=== PATIENT | male | born 1975 | race Caucasian/White ===

== ENCOUNTER 2016-06-10 13:16 | Emergency (ER) | payer OTHER ==
[2016-06-10] MEDS ORDERED: METHOCARBAMOL 500 MG TABLET PO STA (14:27)
[2016-06-10] MEDS ORDERED: METHOCARBAMOL 500 MG TABLET PO ONE (14:32)
== END 2016-06-10 14:56 | disposition home or self-care (01) ==
DX: M54.42 Lumbago with sciatica, left side (principal); G89.29 Other chronic pain; R03.0 Elevated blood-pressure reading, without diagnosis of hypertension
CPT/HCPCS: 81003; 99283; A9270

== ENCOUNTER 2018-10-19 00:44 | Emergency (ER) | payer OTHER ==
[2018-10-19] MEDS ORDERED: SODIUM CHLORIDE 0.9% 1,000 ML IV ONE (01:01)
[2018-10-19] MEDS ORDERED: ONDANSETRON 4 MG/2 ML VIAL IVP STA (01:01)
[2018-10-19] MEDS ORDERED: HYDROmorphone 1 MG/ML CARPUJECT IVP STA ×2 (01:01→02:26)
[2018-10-19] MEDS ORDERED: KETOROLAC 30 MG/ML VIAL IVP STA (01:01)
[2018-10-19 01:15] LABS: BILIRUBIN,URINE NEGATIVE (NEGATIVE); GLUCOSE, URINE (UA) NEGATIVE (NEGATIVE); KETONES,URINE (UA) NEGATIVE (NEGATIVE); LEUKOCYTE ESTERASE, URINE NEGATIVE (NEGATIVE); NITRITE,URINE NEGATIVE (NEGATIVE); OCCULT BLOOD,URINE LARGE (NEGATIVE); PH,URINE 5.5 PH (5.0-7.5); PROTEIN,URINE NEGATIVE (NEGATIVE); UROBILINOGEN,URINE 0.2 (NORMAL) E.U./dL (NORMAL)
[2018-10-19 01:27] LABS: CLARITY,URINE SL. CLOUDY (CLEAR)
[2018-10-19 01:28] LABS: BACTERIA,URINE None Seen /HPF (None Seen); CRYSTALS,URINE 6-10 Calcium Oxalate /LPF; SQUAMOUS EPITHELIAL CELL,UR NONE SEEN (<= Few)
[2018-10-19] MEDS ORDERED: fentaNYL 100 MCG/2 ML VIAL IVP STA (01:31)
--- NOTE | 2018-10-19 01:54 | CT Report ---
Reason: right flank pain with hematuria Procedure Date: 10/19/2018 Accession Number: [id number] / [id number] Procedure: CT - Abdomen/Pelvis WO CPT Code: FULL RESULT: EXAM: CT ABDOMEN AND PELVIS (CT KUB) EXAM DATE: 10/19/2018 01:30 AM. CLINICAL HISTORY: Right-sided flank pain since 11 PM. Blood in urine. History of kidney stones. COMPARISONS: ABD/PEL 09/09/2009 12:22 AM. TECHNIQUE: Routine axial helical CT imaging was performed through the abdomen and pelvis without IV contrast. Reconstructions: Coronal and sagittal. In accordance with CT protocol optimization, one or more of the following dose reduction techniques were utilized for this exam: automated exposure control, adjustment of mA and/or KV based on patient size, or use of iterative reconstructive technique. FINDINGS: Right Kidney/Ureter: There is mild right-sided hydroureteronephrosis noted, secondary to a 3.4 mm right UVJ region stone. There are two nonobstructing stones within the mid and lower pole of the right kidney, measuring 7.2 mm (image 75 series 3). No hydronephrosis or hydroureter. No definite renal mass within the confines of a non-contrast exam. Left Kidney/Ureter: There are two stones within the left kidney, measuring up to 3 mm within the mid and lower portion. No left-sided hydronephrosis is demonstrated. No hydronephrosis or hydroureter. No definite renal mass within the confines of a non-contrast exam. Abdominal Solid Organs: Abdominal parenchymal organs are without significant abnormality within the confines of a noncontrast exam. Bowel: No evidence of bowel obstruction. Appendix: Normal. Lymph Nodes: No definite pathologic lymphadenopathy. Fluid: No significant ascites. Vasculature: Normal caliber aorta. Pelvis: No bladder stones. Visualized pelvic organs are without significant abnormality within the confines of a noncontrast exam. Bones: No definite suspicious bony lesions demonstrated. Lower Chest: No significant lung base consolidation or effusion. IMPRESSION: 1. Mild right-sided hydroureteronephrosis secondary to a 3.4 mm right UVJ stone. 2. There are two intrarenal stones within each kidney, largest within the right lower kidney measuring 7 mm. RADIA
--- NOTE | 2018-10-19 02:00 | ED Physician Documentation ---
PD HPI ABD PAIN - Stated complaint Stated Complaint: ABD PX/BK PX - Chief complaint Chief Complaint: Abd Pain - History obtained from History obtained from: Patient, Family - History of Present Illness Timing - onset: How many hours ago (2) Timing - duration: Hours (2) Timing - details: Still present in ED Quality: Stabbing Location: Other (right flank) Radiation: Other (right groin) Associated symptoms: Vomiting Similar symptoms before: Diagnosis (History of similar pain with kidney stones.) - Additional information Additional information: The patient is a 43-year-old male with history of kidney stones, who presents with sudden onset of right flank pain that started about 2 hours prior to arrival. He reports associated vomiting. He denies fever or dysuria. He also has history of recurrent low back pain with spasms, but states that this pain feels more like a kidney stone. Review of Systems Constitutional: denies: Fever Nose: denies: Congestion Throat: denies: Sore throat Cardiac: denies: Chest pain / pressure Respiratory: denies: Dyspnea, Cough GI: reports: Abdominal Pain, Nausea, Vomiting : denies: Dysuria Skin: denies: Rash Musculoskeletal: reports: Back pain (Right flank.) Neurologic: denies: Headache PD PAST MEDICAL HISTORY - Past Medical History Past Medical History: Yes Cardiovascular: None Respiratory: None Endocrine/Autoimmune: None GI: None : Kidney stones HEENT: None Musculoskeletal: Chronic back pain Derm: None - Past Surgical History Past Surgical History: Yes Ortho: Other HEENT: Other - Present Medications Home Medications: Ambulatory Orders Medication Instructions Recorded Confirmed Fexofenadine/Pseudoephedrine 1 tab PO DAILY 10/19/18 10/19/18 [[place]ana-D 24 Hour Tablet] Oxycodone HCl/Acetaminophen 1 - 2 each PO Q6H PRN #14 tablet 10/19/18 [Percocet 5-325 mg Tablet] Tamsulosin [Flomax] 0.4 mg PO DAILY #7 capsule 10/19/18 - Allergies Allergies/Adverse Reactions: Allergies Allergy/AdvReac Type Severity Reaction Status Date / Time No Known Drug Allergies Allergy Verified 10/19/18 01:13 - Social History Does the pt smoke?: No Smoking Status: Never smoker Does the pt drink ETOH?: Yes Does the pt have substance abuse?: No - Immunizations Immunizations are current?: Yes - POLST Patient has POLST: No PD ED PE NORMAL - Vitals Vital signs reviewed: Yes (Initially hypertensive.) - General General: Alert and oriented X 3, Well developed/nourished, Other (Appears uncomfortable.) - HEENT HEENT: Atraumatic - Cardiac Cardiac: RRR - Respiratory Respiratory: No respiratory distress, Clear bilaterally - Abdomen Abdomen: Soft, Non tender - Back Back: Other (Right CVA tenderness to percussion.) - Derm Derm: No rash - Extremities Extremities: No edema, No calf tenderness / cord - Neuro Neuro: Alert and oriented X 3, No motor deficit, Normal speech Results - Vitals Vitals: Oxygen O2 Source Room air - Labs Labs: Laboratory Tests 10/19/18 00:55 Urine Color YELLOW Urine Clarity SL. CLOUDY Urine pH 5.5 Ur Specific [place] >=1.030 H Urine Protein NEGATIVE Urine Glucose (UA) NEGATIVE Urine Ketones NEGATIVE Urine Occult Blood LARGE H Urine Nitrite NEGATIVE Urine Bilirubin NEGATIVE Urine Urobilinogen 0.2 (NORMAL) Ur Leukocyte Esterase NEGATIVE Urine RBC 11-25 H Urine WBC 0-3 Ur Squamous Epith Cells NONE SEEN Urine Crystals 6-10 Calcium Oxalate Urine Bacteria None Seen Ur Microscopic Review INDICATED Urine Culture Comments NOT INDICATED - Rads (name of study) CT abd/pelvis Radiology: Prelim report reviewed, EMP read contemporaneously, See rad report (1) Mild right-sided hydroureteronephrosis secondary to a 3.4 mm right UVJ stone. 2) There are 2 intrarenal stones within each kidney, largest within the right lower kidney measuring 7 mm) PD MEDICAL DECISION MAKING - ED course Complexity details: reviewed old records, reviewed results, re-evaluated patient, considered differential, d/w patient, d/w family ED course: The patient's presentation is consistent with right renal colic, with a 3.4 mm distal ureteral stone seen on CT scan. His clinical presentation does not suggest pyelonephritis or a vascular catastrophe. Treatment in the emergency department included administration of normal saline 1 L IV, ketorolac 30 mg IV, Zofran 4 mg IV, fentanyl 50 g IV, and Dilaudid 1 mg IV 2. The patient's pain resolved with the above treatment. He is being discharged with prescription for Percocet, and a 4 tablet prepack was dispensed. I discussed with him and his the diagnosis, outpatient follow-up with urology, as well as potentially worrisome signs or symptoms that should prompt reevaluation in the emergency department. Departure - Departure Disposition: 01 Home, Self Care Clinical Impression: Renal colic, Ureteral stone Condition: Stable Instructions: ED Stone Renal W Colic Follow-Up: CINDY MARIE MD [Primary Care Provider] - Prescriptions: Oxycodone HCl/Acetaminophen [Percocet 5-325 mg Tablet] 1 - 2 each PO Q6H PRN #14 tablet PRN Reason: pain Tamsulosin [Flomax] 0.4 mg PO DAILY #7 capsule Comments: Drink plenty of fluids. Take Flomax daily as prescribed. You can use ibuprofen, up to 800 mg 3 times daily for its anti-inflammatory effect. You can use Percocet as prescribed if needed for pain. Follow-up with your primary physician or your urologist within 1 week. Call to schedule an appointment. Return to the emergency department if you develop increasing pain, fever, persistent vomiting, or otherwise worsening symptoms. Forms: Activity restrictions Discharge Date/Time: 10/19/18 02:49
[2018-10-19] MEDS ORDERED: oxyCODONE/ACET 5/325 Prepack 4 PO STA (02:21)
[2018-10-19 02:33] VITALS: BP 137/88
== END 2018-10-19 02:49 | disposition home or self-care (01) ==
LOC: ED 00:44
DX: N13.2 Hydronephrosis with renal and ureteral calculous obstruction (principal)
CPT/HCPCS: 74176; 81001; 96361; 96374; 96375; 96376; 99283; 99284; J1170; 81003; 87086

== ENCOUNTER 2019-02-15 23:35 | Emergency (ER) | payer OTHER ==
[2019-02-16 00:09] LABS: BASOPHILS # (AUTO) 0.1 10^3/uL (0.0-0.1); BASOPHILS % (AUTO) 0.8 %; EOSINOPHILS # (AUTO) 0.2 10^3/uL (0.0-0.7); EOSINOPHILS % (AUTO) 2.1 %; HGB - HEMOGLOBIN 15.1 g/dL (14.0-18.0); LYMPHOCYTES # (AUTO) 2.1 10^3/uL (1.5-3.5); LYMPHOCYTES % (AUTO) 28.9 %; MEAN CORPUSCULAR HEMOGLOBIN 29.4 pg (27.0-31.0); MEAN CORPUSCULAR HGB CONC 32.8 g/dL (32.0-36.0); MEAN CORPUSCULAR VOLUME 89.5 fL (80.0-94.0); MONOCYTES # (AUTO) 0.7 10^3/uL (0.0-1.0); MONOCYTES % (AUTO) 9.7 %; NEUTROPHILS # (AUTO) 4.1 10^3/uL (1.5-6.6); NEUTROPHILS % (AUTO) 57.8 %; PLT - PLATELET COUNT 302 10^3/uL (130-450); RED BLOOD COUNT 5.14 10^6/uL (4.70-6.10); RED CELL DISTRIBUTION WIDTH 11.8 % (12.0-15.0); WHITE BLOOD COUNT 7.1 x10^3/uL (4.8-10.8)
[2019-02-16 00:14] LABS: BILIRUBIN,URINE NEGATIVE (NEGATIVE); GLUCOSE, URINE (UA) NEGATIVE (NEGATIVE); KETONES,URINE (UA) NEGATIVE (NEGATIVE); LEUKOCYTE ESTERASE, URINE NEGATIVE (NEGATIVE); NITRITE,URINE NEGATIVE (NEGATIVE); OCCULT BLOOD,URINE LARGE (NEGATIVE); PROTEIN,URINE NEGATIVE (NEGATIVE); UROBILINOGEN,URINE 0.2 (NORMAL) E.U./dL (NORMAL)
[2019-02-16 00:15] LABS: CLARITY,URINE CLEAR (CLEAR)
[2019-02-16 00:20] LABS: BACTERIA,URINE Rare /HPF (None Seen); SQUAMOUS EPITHELIAL CELL,UR NONE SEEN (<= Few)
[2019-02-16 00:21] LABS: ALBUMIN 4.7 g/dL (3.2-5.5); ALBUMIN/GLOBULIN RATIO 1.7 (1.0-2.2); BILIRUBIN,TOTAL 0.5 mg/dL (0.2-1.0); CREATININE 0.9 mg/dL (0.6-1.2); TOTAL PROTEIN 7.5 g/dL (6.7-8.2)
--- NOTE | 2019-02-16 00:25 | ED Physician Documentation ---
PD HPI ABD PAIN - Stated complaint Stated Complaint: ABD PX, BACK LOWER SIDE PX - Chief complaint Chief Complaint: Abd Pain - History obtained from History obtained from: Patient - History of Present Illness Timing - onset: Enter time (20:00), Today Timing - details: Abrupt onset, Waxing and waning Pain level now: 6 Quality: Pain Location: RLQ Radiation: Right flank Improved by: Other (no ameliorating factors) Worsened by: Other (no exacerbating factors) Associated symptoms: Nausea, Vomiting. No: Fever, Diarrhea, Constipation Similar symptoms before: Diagnosis (similar to previous renal colic (although that was left side)) Recently seen: Not recently seen Review of Systems Constitutional: reports: Sweats. denies: Fever, Chills Cardiac: reports: Reviewed and negative Respiratory: reports: Reviewed and negative GI: reports: Abdominal Pain (flank pain), Nausea, Vomiting : denies: Dysuria, Frequency, Hematuria PD PAST MEDICAL HISTORY - Past Medical History Past Medical History: Yes Cardiovascular: None Respiratory: None Endocrine/Autoimmune: None GI: None : Kidney stones HEENT: None Musculoskeletal: Chronic back pain Derm: None - Past Surgical History Past Surgical History: Yes Ortho: Other HEENT: Other - Present Medications Home Medications: Ambulatory Orders Medication Instructions Recorded Confirmed Ondansetron Odt [Zofran] 4 mg TL Q6H PRN #10 tablet 02/16/19 Oxycodone HCl/Acetaminophen 1 - 2 each PO Q6H PRN #14 tablet 02/16/19 [Percocet 5-325 mg Tablet] Tamsulosin [Flomax] 0.4 mg PO DAILY #14 capsule 02/16/19 - Allergies Allergies/Adverse Reactions: Allergies Allergy/AdvReac Type Severity Reaction Status Date / Time No Known Drug Allergies Allergy Verified 02/15/19 23:44 - Social History Does the pt smoke?: No Smoking Status: Never smoker Does the pt drink ETOH?: Yes Does the pt have substance abuse?: No - Immunizations Immunizations are current?: Yes - POLST Patient has POLST: No PD ED PE NORMAL - Vitals Vital signs reviewed: Yes - General General: Alert and oriented X 3, No acute distress, Well developed/nourished - Cardiac Cardiac: RRR, No murmur - Respiratory Respiratory: No respiratory distress, Clear bilaterally - Abdomen Abdomen: Soft, Non tender - Back Back: No CVA TTP Results - Vitals Vitals: Vital Signs - 24 hr 02/15/19 02/16/19 02/16/19 23:40 02:04 02:56 Temperature 36.3 C L Heart Rate 71 76 69 Respiratory 16 16 14 Rate Blood Pressure 152/98 H 149/106 H 138/103 H O2 Saturation 98 99 96 Oxygen O2 Source Room air - Labs Labs: Laboratory Tests 02/15/19 02/15/19 02/16/19 23:55 23:55 00:00 WBC 7.1 RBC 5.14 Hgb 15.1 Hct 46.0 MCV 89.5 MCH 29.4 MCHC 32.8 RDW 11.8 L Plt Count 302 MPV 10.0 Neut # (Auto) 4.1 Lymph # (Auto) 2.1 [place] # (Auto) 0.7 Eos # (Auto) 0.2 Baso # (Auto) 0.1 Absolute Nucleated RBC 0.00 Nucleated RBC % 0.0 Sodium 139 Potassium 3.7 Chloride 104 Carbon Dioxide 27 Anion Gap 8.0 BUN 22 H Creatinine 0.9 Estimated GFR (MDRD) 93 Glucose 103 H Calcium 10.0 Total Bilirubin 0.5 AST 25 ALT 41 Alkaline Phosphatase 48 Total Protein 7.5 Albumin 4.7 Globulin 2.8 Albumin/Globulin Ratio 1.7 Lipase 37 Urine Color YELLOW Urine Clarity CLEAR Urine pH 6.0 Ur Specific [place] 1.020 Urine Protein NEGATIVE Urine Glucose (UA) NEGATIVE Urine Ketones NEGATIVE Urine Occult Blood LARGE H Urine Nitrite NEGATIVE Urine Bilirubin NEGATIVE Urine Urobilinogen 0.2 (NORMAL) Ur Leukocyte Esterase NEGATIVE Urine RBC 11-25 H Urine WBC 0-3 Ur Squamous Epith Cells NONE SEEN Urine Bacteria Rare Ur Microscopic Review INDICATED Urine Culture Comments NOT INDICATED PD MEDICAL DECISION MAKING - ED course Complexity details: reviewed old records, reviewed results, re-evaluated patient, considered differential, d/w patient ED course: flank pain similar to previous renal colic. Previous CT (October 2018) demonstrated left ureteral stone but multiple bilateral renal stones as well. Hematuria on UA. Strongly c/w renal colic and thus no emergent imaging indicated at this time. Symptoms were controlled with Dilaudid, toradol, zofran. Given flomax, as well. Departure - Departure Disposition: 01 Home, Self Care Clinical Impression: Renal colic Condition: Good Instructions: ED Stone Renal W Colic Follow-Up: CINDY MARIE MD [Primary Care Provider] - Prescriptions: Ondansetron Odt [Zofran] 4 mg TL Q6H PRN #10 tablet PRN Reason: Nausea / Vomiting Oxycodone HCl/Acetaminophen [Percocet 5-325 mg Tablet] 1 - 2 each PO Q6H PRN #14 tablet PRN Reason: pain Tamsulosin [Flomax] 0.4 mg PO DAILY #14 capsule Discharge Date/Time: 02/16/19 03:05
[2019-02-16] MEDS ORDERED: KETOROLAC 30 MG/ML VIAL IVP STA (00:44)
[2019-02-16] MEDS ORDERED: HYDROmorphone 1 MG/ML CARPUJECT IVP STA ×2 (00:44→01:56)
[2019-02-16] MEDS ORDERED: ONDANSETRON 4 MG/2 ML VIAL IVP STA (00:44)
[2019-02-16] MEDS ORDERED: TAMSULOSIN 0.4 MG CAPSULE PO STA (00:45)
[2019-02-16] MEDS ORDERED: oxyCODONE/ACET 5/325 Prepack 4 PO STA (02:51)
[2019-02-16 02:58] VITALS: BP 138/103
== END 2019-02-16 03:05 | disposition home or self-care (01) ==
LOC: ED 23:35
DX: N23 Unspecified renal colic (principal); R31.9 Hematuria, unspecified
CPT/HCPCS: 36415; 80053; 81001; 83690; 85025; 96374; 96375; 96376; 99283; 99284; A9270; J1170; 81003; 87086

== ENCOUNTER 2020-06-27 00:12 | Outpatient (CLI) | payer OTHER | END 2020-06-27 23:59 | disposition critical access hospital (66) | LOC: EMS 00:12 | PROVIDERS: ATTEND Emergency Medicine | DX: R10.31 Right lower quadrant pain (principal); R11.2 Nausea with vomiting, unspecified | CPT/HCPCS: A0425; A0427 ==

== ENCOUNTER 2020-06-27 00:29 | Emergency (ER) | payer OTHER ==
[2020-06-27] MEDS ORDERED: SODIUM CHLORIDE 0.9% 1,000 ML IV STA (00:51)
[2020-06-27 01:02] LABS: BASOPHILS # (AUTO) 0.1 10^3/uL (0.0-0.1); BASOPHILS % (AUTO) 0.9 %; EOSINOPHILS # (AUTO) 0.3 10^3/uL (0.0-0.7); EOSINOPHILS % (AUTO) 3.7 %; HCT - HEMATOCRIT 43.1 % (42.0-52.0); HGB - HEMOGLOBIN 14.5 g/dL (14.0-18.0); LYMPHOCYTES # (AUTO) 2.8 10^3/uL (1.5-3.5); LYMPHOCYTES % (AUTO) 41.9 %; MEAN CORPUSCULAR HEMOGLOBIN 30.3 pg (27.0-31.0); MEAN CORPUSCULAR HGB CONC 33.6 g/dL (32.0-36.0); MEAN CORPUSCULAR VOLUME 90.2 fL (80.0-94.0); MEAN PLATELET VOLUME 9.8 fL (7.4-11.4); MONOCYTES # (AUTO) 0.7 10^3/uL (0.0-1.0); MONOCYTES % (AUTO) 10.6 %; NEUTROPHILS # (AUTO) 2.8 10^3/uL (1.5-6.6); PLT - PLATELET COUNT 325 10^3/uL (130-450); RED BLOOD COUNT 4.78 10^6/uL (4.70-6.10); WHITE BLOOD COUNT 6.7 x10^3/uL (4.8-10.8)
[2020-06-27 01:11] LABS: ALBUMIN 4.7 g/dL (3.2-5.5); ALBUMIN/GLOBULIN RATIO 1.9 (1.0-2.2); BILIRUBIN,TOTAL 0.7 mg/dL (0.2-1.0); CALCIUM 9.5 mg/dL (8.5-10.3); POTASSIUM 3.5 mmol/L (3.5-5.0); TOTAL PROTEIN 7.2 g/dL (6.7-8.2)
--- NOTE | 2020-06-27 01:40 | ED Physician Documentation ---
PD HPI ABD PAIN - Stated complaint Stated Complaint: RT FLANK PX - Chief complaint Chief Complaint: Abd Pain - History obtained from History obtained from: Patient - Additional information Additional information: 44-year-old man with past medical history of kidney stones that passed spontaneously, no other medical problems presents with right flank pain sudden in onset this evening radiating to the lower abdomen associated with dysuria. Pain is constant, sharp, currently a 2 out of 10 after getting fentanyl, associated with one episode of nausea and vomiting with streak of blood. Denies fever, diarrhea, chest pain or shortness of breath. Review of Systems Ten Systems: 10 systems reviewed and negative Constitutional: denies: Fever, Chills GI: reports: Abdominal Pain, Nausea, Vomiting : reports: Dysuria Musculoskeletal: reports: Back pain PD PAST MEDICAL HISTORY - Past Medical History Cardiovascular: None Respiratory: None Endocrine/Autoimmune: None GI: None : Kidney stones HEENT: None Musculoskeletal: Chronic back pain Derm: None - Past Surgical History Past Surgical History: Yes Ortho: Spine surgery, Other HEENT: Other - Present Medications Home Medications: Ambulatory Orders Medication Instructions Recorded Confirmed oxyCODONE/ACET 5/325 [Percocet 5 1 each PO Q4-6H PRN #9 tablet 06/27/20 mg/325 mg] - Allergies Allergies/Adverse Reactions: Allergies Allergy/AdvReac Type Severity Reaction Status Date / Time No Known Drug Allergies Allergy Verified 06/27/20 00:38 - Social History Does the pt smoke?: No Smoking Status: Never smoker Does the pt drink ETOH?: Yes Does the pt have substance abuse?: No - Immunizations Immunizations are current?: Yes - POLST Patient has POLST: No PD ED PE NORMAL - Vitals Vital signs reviewed: Yes - General General: Alert and oriented X 3, No acute distress, Well developed/nourished - HEENT HEENT: Atraumatic, PERRL, EOMI - Neck Neck: Supple, no meningeal sign - Cardiac Cardiac: RRR - Respiratory Respiratory: No respiratory distress, Clear bilaterally - Abdomen Abdomen: Non tender, Non distended, Other (Discomfort to suprapubic palpation) - Back Back: No CVA TTP - Derm Derm: Normal color - Extremities Extremities: No deformity - Neuro Neuro: Alert and oriented X 3 - Psych Psych: Normal mood, Normal affect Results - Vitals Vitals: Vital Signs - 24 hr 06/27/20 00:32 Temperature 37.2 C Heart Rate 80 Respiratory 18 Rate Blood Pressure 154/96 H O2 Saturation 95 Oxygen O2 Source Room air - Labs Labs: Laboratory Tests 06/27/20 06/27/20 06/27/20 00:44 00:44 02:00 WBC 6.7 RBC 4.78 Hgb 14.5 Hct 43.1 MCV 90.2 MCH 30.3 MCHC 33.6 RDW 12.0 Plt Count 325 MPV 9.8 Neut # (Auto) 2.8 Lymph # (Auto) 2.8 [place] # (Auto) 0.7 Eos # (Auto) 0.3 Baso # (Auto) 0.1 Absolute Nucleated RBC 0.00 Nucleated RBC % 0.0 Sodium 137 Potassium 3.5 Chloride 100 L Carbon Dioxide 23 Anion Gap 14.0 H BUN 16 Creatinine 1.0 Estimated GFR (MDRD) 82 L Glucose 119 H Calcium 9.5 Total Bilirubin 0.7 AST 38 ALT 50 Alkaline Phosphatase 43 Total Protein 7.2 Albumin 4.7 Globulin 2.5 Albumin/Globulin Ratio 1.9 Lipase 30 Urine Color YELLOW Urine Clarity CLEAR Urine pH 6.5 Ur Specific [place] 1.025 Urine Protein NEGATIVE Urine Glucose (UA) NEGATIVE Urine Ketones NEGATIVE Urine Occult Blood LARGE H Urine Nitrite NEGATIVE Urine Bilirubin NEGATIVE Urine Urobilinogen 0.2 (NORMAL) Ur Leukocyte Esterase NEGATIVE Urine RBC 11-25 H Urine WBC 0-3 Ur Squamous Epith Cells NONE SEEN Urine Bacteria None Seen Ur Microscopic Review INDICATED Urine Culture Comments NOT INDICATED Procedures - Bedside sono Bedside sono by EMP: Qsaap-rl-lnet ultrasound of bilateral kidneys with no signs of hydronephrosis. PD MEDICAL DECISION MAKING - ED course ED course: 44-year-old man with history of prior kidney stones presents with pain he states is identical to his prior stones. [id number] bedside ultrasound shows no hydronephrosis. Urinalysis negative. Symptoms well controlled. Patient will follow up [facility] as an outpatient. Strict return precautions given. Departure - Departure Disposition: 01 Home, Self Care Clinical Impression: Flank pain, Abdominal pain, Nausea and vomiting Condition: Good Instructions: Kidney Stones Follow-Up: Mirian Cronin MD [Physician No Access] - Prescriptions: oxyCODONE/ACET 5/325 [Percocet 5 mg/325 mg] 1 each PO Q4-6H PRN #9 tablet PRN Reason: Pain Comments: You were seen in the emergency department for flank pain going to your abdomen. It is likely that you have kidney stones again today. Your ultrasound of your kidneys was normal. Your kidney function and urine was normal. Please return to the emergency department if you have any new or worsening symptoms or other concerns. Do not drive with narcotic pain medication. Follow-up with urology.
[2020-06-27 02:09] LABS: BILIRUBIN,URINE NEGATIVE (NEGATIVE); GLUCOSE, URINE (UA) NEGATIVE (NEGATIVE); KETONES,URINE (UA) NEGATIVE (NEGATIVE); LEUKOCYTE ESTERASE, URINE NEGATIVE (NEGATIVE); NITRITE,URINE NEGATIVE (NEGATIVE); OCCULT BLOOD,URINE LARGE (NEGATIVE); PH,URINE 6.5 PH (5.0-7.5); PROTEIN,URINE NEGATIVE (NEGATIVE); UROBILINOGEN,URINE 0.2 (NORMAL) E.U./dL (NORMAL)
[2020-06-27 02:16] LABS: BACTERIA,URINE None Seen /HPF (None Seen); CLARITY,URINE CLEAR (CLEAR); SQUAMOUS EPITHELIAL CELL,UR NONE SEEN (<= Few); WBC,URINE 0-3 /HPF (0-3)
[2020-06-27] MEDS ORDERED: oxyCODONE/ACET 5/325 Prepack 4 PO STA (02:20)
[2020-06-27 02:51] VITALS: BP 147/100
== END 2020-06-27 02:40 | disposition home or self-care (01) ==
LOC: EDUNIT# → ED 00:29
DX: R10.30 Lower abdominal pain, unspecified (principal); R11.2 Nausea with vomiting, unspecified; R30.0 Dysuria
CPT/HCPCS: 36415; 80053; 81001; 81003; 83690; 85025; 87086; 99283; 99284

== ENCOUNTER 2022-09-03 16:40 | Outpatient (CLI) | payer OTHER | END 2022-09-03 16:41 | disposition critical access hospital (66) | LOC: EMS 16:40 | DX: M54.50 Low back pain, unspecified (principal); X50.0XXA Overexertion from strenuous movement or load, initial encounter; Y92.009 Unspecified place in unspecified non-institutional (private) residence as the place of occurrence of the external cause | CPT/HCPCS: A0425; A0427 ==

== ENCOUNTER 2022-09-03 17:03 | Emergency (ER) | payer OTHER ==
[2022-09-03] MEDS ORDERED: LORazepam 2 MG/ML VIAL IVP STA (17:14)
[2022-09-03] MEDS ORDERED: HYDROmorphone 1 MG/ML CARPUJECT IVP STA ×2 (17:14→18:05)
[2022-09-03] MEDS ORDERED: KETOROLAC 15 MG/ML VIAL IVP STA (17:14)
--- NOTE | 2022-09-03 17:15 | ED Physician Documentation ---
PD HPI BACK PAIN - Stated complaint Stated Complaint: BACK PX - Chief complaint Chief Complaint: Back Pain - History obtained from History obtained from: Patient - Additional information Additional information: 47-year-old gentleman has history of back problems, remotely had a laminectomy, since then really has not had much problem with his back. Today he was lifting a box into his truck and "tweaked" his back with severe low back pain that is nonradiating. Much worse with motion. Denies weakness, numbness, tingling, saddle anesthesia, or fevers. PD PAST MEDICAL HISTORY - Past Medical History Cardiovascular: None Respiratory: None Endocrine/Autoimmune: None GI: None : Kidney stones HEENT: None Musculoskeletal: Chronic back pain Derm: None - Past Surgical History Past Surgical History: Yes Ortho: Spine surgery, Other HEENT: Other - Present Medications Home Medications: Ambulatory Orders Medication Instructions Recorded Confirmed Cyclobenzaprine [Flexeril] 10 mg PO TID PRN #20 tablet 09/03/22 Ibuprofen 400 mg PO Q6HR PRN 09/03/22 09/03/22 Ibuprofen [Motrin] 800 mg PO Q8H PRN #30 tablet 09/03/22 Oxycodone HCl/Acetaminophen 1 - 2 each PO Q6H PRN #14 tablet 09/03/22 [Percocet 5-325 mg Tablet] - Allergies Allergies/Adverse Reactions: Allergies Allergy/AdvReac Type Severity Reaction Status Date / Time No Known Drug Allergies Allergy Verified 09/03/22 17:09 - Social History Does the pt smoke?: No Smoking Status: Never smoker Does the pt drink ETOH?: Yes Does the pt have substance abuse?: No - Immunizations Immunizations are current?: Yes - POLST Patient has POLST: No PD ED PE NORMAL - Vitals Vital signs reviewed: Yes - General General: Alert and oriented X 3, Other (Comfortable at rest but winces with any motion) - Abdomen Abdomen: Normal bowel sounds, Soft, Non tender - Back Back: Other (Mild tenderness around L3-L4) - Extremities Extremities: Other (The patient has equal and normal Achilles and patellar refle xes bilaterally. Normal sensation in all areas of the legs. Patient denies saddle anesthesia. Normal strength in flexion-extension at the ankles, knees, and flexion of the hips.) Results - Vitals Vitals: Vital Signs - 24 hr 09/03/22 09/03/22 09/03/22 17:10 17:24 18:00 Temperature 36.8 C Heart Rate 75 78 82 Respiratory 20 18 16 Rate Blood Pressure 154/103 H 144/92 H 121/88 H O2 Saturation 99 98 99 09/03/22 09/03/22 09/03/22 18:39 18:40 18:46 Temperature Heart Rate 57 L Respiratory 16 17 17 Rate Blood Pressure O2 Saturation 97 Oxygen O2 Source Room air PD Medical Decision Making - ED course ED course: This patient has seemingly uncomplicated musculoskeletal back pain. The patient has no "red flags." Specifically denies IV drug use, fevers, incontinence, saddle anesthesia. Spinal epidural abscess was considered, given that the patient has no fever, is not diabetic, has no spinal tenderness, does not use IV drugs, and has no bilateral neurologic symptoms, the diagnosis of spinal epidural abscess is considered exceedingly unlikely. He had an IV in place and had been administered a small dose of fentanyl prior to arrival. This was followed by 1 mg of IV Dilaudid and 15 mg of IV Toradol and 1 mg of IV Ativan. After that he was feeling much better and we got him up but he still could not quite ambulate without a lot of pain. This was followed by another milligram of Ativan IV, a Lidoderm patch, and subsequently I personally did a trigger point injection with 9 mL of 0.5% Marcaine and 10 mg of dexamethasone. Departure - Departure Disposition: 01 Home, Self Care Clinical Impression: Strain of back muscle, Back spasm Condition: Good Record reviewed to determine appropriate education?: Yes Instructions: ED Low Back Pain Injury Prescriptions: Cyclobenzaprine [Flexeril] 10 mg PO TID PRN #20 tablet PRN Reason: Spasms Ibuprofen [Motrin] 800 mg PO Q8H PRN #30 tablet PRN Reason: PAIN &/OR FEVER Oxycodone HCl/Acetaminophen [Percocet 5-325 mg Tablet] 1 - 2 each PO Q6H PRN #14 tablet PRN Reason: pain Comments: I sent your prescriptions electronically to [facility] in [place]. Call your doctor to arrange a follow-up appointment, make the next available appointment. In the interim, return anytime if worse or if new symptoms develop. I am prescribing a short course of narcotic pain medication for you. These are potentially dangerous and addictive medications that should be used carefully. These medications may constipate you. Take an edqi-cju-[id number] stool softener (docusate) twice daily with plenty of water while taking these medications. If you go 24 hours without a bowel movement, take dymp-mry-bhcrskk miralax, per package instructions. Do not drink or drive while taking these medications. If you received narcotic or sedating medications while in the emergency department, do not drive for 24 hours. Store this medication in a safe, secure place and out of reach of children. It is a violation of federal law to give or sell this medication to another person or to use in a manner other than prescribed. The ED will not refill narcotic prescriptions, including prescriptions lost or stolen. To dispose of unwanted medications: 1. [facility] at [address] in [place] has a medication drop box. They accept prescription medications (in pill form) Friday through Friday 9:00 a.m. to 5:00 p.m. 2. The [facility] [place] [employer] accepts prescription medications (in pill form only) for disposal year round. Call for more information. 3. Contact the [facility] for the next [facility] sponsored prescription drug collection event. , [phone], or [phone]; Note that many narcotic pain relievers also contain Tylenol/acetaminophen. Please ensure that your total dose of acetaminophen from all sources does not exceed 3 g (3000 mg) per day. Forms: Activity restrictions
[2022-09-03 18:03] VITALS: BP 121/88
[2022-09-03] MEDS ORDERED: LIDOCAINE PATCH 5% TOP STA (18:05)
[2022-09-03] MEDS ORDERED: DEXAMETHASONE 10 MG/ML VIAL IM STA (18:42)
[2022-09-03] MEDS ORDERED: BUPIVACAINE 0.5% PF 10 ML VIAL IM ONE (18:42)
[2022-09-03] MEDS ORDERED: HYDROmorphone 2 MG/ML VIAL IVP STA (19:03)
== END 2022-09-03 19:33 | disposition home or self-care (01) ==
LOC: EDUNIT# → ED 17:03
DX: M62.830 Muscle spasm of back (principal)
CPT/HCPCS: 96372; 96374; 96376; 99283; 99285; A9270; J1170; J2060

== ENCOUNTER 2022-12-03 13:16 | Emergency (ER) | payer OTHER ==
[2022-12-03 13:33] VITALS: BP 160/90; O2SAT 98
--- NOTE | 2022-12-03 14:18 | ED Physician Documentation ---
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 He had a laminectomy about 2 years ago. He has occasional flares of back pain. He was bending over about a week ago and felt a pull in the left low back and has had pain ever since which is particularly bad with certain motions. He denies weakness, numbness, tingling, saddle anesthesia, incontinence, fevers. He tried ibuprofen without relief. PD PAST MEDICAL HISTORY - Past Medical History Cardiovascular: None Respiratory: None Neuro: None Endocrine/Autoimmune: None GI: None : Kidney stones HEENT: None Psych: None Musculoskeletal: Chronic back pain Derm: None - Past Surgical History Past Surgical History: Yes Ortho: Spine surgery, Other HEENT: Other - Present Medications Home Medications: Ambulatory Orders Medication Instructions Recorded Confirmed Cyclobenzaprine [Flexeril] 10 mg PO TID PRN #20 tablet 09/03/22 Ibuprofen 400 mg PO Q6HR PRN 09/03/22 09/03/22 Ibuprofen [Motrin] 800 mg PO Q8H PRN #30 tablet 09/03/22 Oxycodone HCl/Acetaminophen 1 - 2 each PO Q6H PRN #14 tablet 09/03/22 [Percocet 5-325 mg Tablet] Cyclobenzaprine [Flexeril] 10 mg PO TID PRN #20 tablet 12/03/22 Oxycodone HCl/Acetaminophen 1 - 2 each PO Q6H PRN #14 tablet 12/03/22 [Percocet 5-325 mg Tablet] - Allergies Allergies/Adverse Reactions: Allergies Allergy/AdvReac Type Severity Reaction Status Date / Time No Known Drug Allergies Allergy Verified 12/03/22 13:21 - Social History Does the pt smoke?: No Smoking Status: Never smoker Does the pt drink ETOH?: Yes Does the pt have substance abuse?: No - Immunizations Immunizations are current?: Yes - POLST Patient has POLST: No PD ED PE NORMAL - Vitals Vital signs reviewed: Yes - General General: Alert and oriented X 3, No acute distress - Abdomen Abdomen: Normal bowel sounds, Soft, Non tender - Back Back: No spinal TTP, Other (Mild tenderness of the left paralumbar muscles, he winces with motion but is comfortable at rest. More comfortable standing than sitting.) - Extremities Extremities: Other (The patient has equal and normal Achilles and patellar reflexes bilaterally. Normal sensation in all areas of the legs. Patient denies saddle anesthesia. Normal strength in flexion-extension at the ankles, knees, and flexion of the hips.) - Neuro Neuro: Alert and oriented X 3, Normal speech Results - Vitals Vitals: Vital Signs - 24 hr 12/03/22 13:21 Temperature 36.5 C Heart Rate 84 Respiratory 16 Rate Blood Pressure 160/90 H O2 Saturation 98 Oxygen O2 Source Room air PD Medical Decision Making - ED course ED course: This patient has seemingly uncomplicated musculoskeletal back pain. The patient has no "red flags." Specifically denies IV drug use, fevers, incontinence, saddle anesthesia. Spinal epidural abscess was considered, given that the patient has no fever, is not diabetic, has no spinal tenderness, does not use IV drugs, and has no bilateral neurologic symptoms, the diagnosis of spinal epidural abscess is considered exceedingly unlikely. Departure - Departure Disposition: 01 Home, Self Care Clinical Impression: Back spasm Condition: Good Record reviewed to determine appropriate education?: Yes Instructions: ED Low Back Pain Injury Prescriptions: Cyclobenzaprine [Flexeril] 10 mg PO TID PRN #20 tablet PRN Reason: Spasms Oxycodone HCl/Acetaminophen [Percocet 5-325 mg Tablet] 1 - 2 each PO Q6H PRN #14 tablet PRN Reason: pain Comments: I sent your prescriptions electronically to [facility] in [place]. Call your doctor to arrange a follow-up appointment, make the next available appointment. In the interim, return anytime if worse or if new symptoms develop. 's I am prescribing a short course of narcotic pain medication for you. These are potentially dangerous and addictive medications that should be used carefully. These medications may constipate you. Take an kait-zyx-jujoawd stool softener (docusate) twice daily with plenty of water while taking these medications. If you go 24 hours without a bowel movement, take [id number] miralax, per package instructions. Do not drink or drive while taking these medications. If you received narcotic or sedating medications while in the emergency department, do not drive for 24 hours. Store this medication in a safe, secure place and out of reach of children. It is a violation of federal law to give or sell this medication to another person or to use in a manner other than prescribed. The ED will not refill narcotic prescriptions, including prescriptions lost or stolen. To dispose of unwanted medications: 1. [facility] provides a [facility] box for medication in pill form only (no liquids) 8:00 am to 4:30 p.m. Friday-Friday in the lobby of the [facility] [place], [address] [place] [address]. Empty pills into ziplock bag before disposal. Call [phone] for information. 2.[employer] is a free service available to all [facility] residents. Go to [email or web address] Note that many narcotic pain relievers also contain Tylenol/acetaminophen. Please ensure that your total dose of acetaminophen from all sources does not exceed 3 g (3000 mg) per day. Forms: Activity restrictions
== END 2022-12-03 14:25 | disposition home or self-care (01) ==
LOC: ED 13:16
DX: M62.830 Muscle spasm of back (principal)
CPT/HCPCS: 99282; 99283

== ENCOUNTER 2023-03-20 16:31 | Emergency (ER) | payer OTHER ==
[2023-03-20] MEDS ORDERED: KETOROLAC 60 MG/2 ML VIAL IM STA (16:47)
[2023-03-20] MEDS ORDERED: HYDROmorphone 2 MG/ML VIAL IM STA (16:48)
--- NOTE | 2023-03-20 16:48 | ED Physician Documentation ---
PD HPI BACK PAIN - Stated complaint Stated Complaint: LOWER BACK PX - Chief complaint Chief Complaint: Back Pain - History obtained from History obtained from: Patient - Additional information Additional information: 47-year-old gentleman with chronic recurrent back pain. Usually has a few flares a year. Had a laminectomy about 3 years ago. Today he was bending over reaching for his pants and developed left low back pain similar to prior recurrent severe back pain. There is no associated radiation of the pain, no weakness, numbness, tingling, saddle anesthesia, fevers. It is worse if he chavo ds or twists or changes position. PD PAST MEDICAL HISTORY - Past Medical History Past Medical History: Yes Cardiovascular: None Respiratory: None Neuro: None Endocrine/Autoimmune: None GI: None : Kidney stones HEENT: None Psych: None Musculoskeletal: Chronic back pain Derm: None - Past Surgical History Past Surgical History: Yes Ortho: Spine surgery, Other HEENT: Other - Present Medications Home Medications: Ambulatory Orders Medication Instructions Recorded Confirmed Cyclobenzaprine [Flexeril] 10 mg PO TID PRN #20 tablet 09/03/22 Ibuprofen 400 mg PO Q6HR PRN 09/03/22 09/03/22 Ibuprofen [Motrin] 800 mg PO Q8H PRN #30 tablet 09/03/22 Oxycodone HCl/Acetaminophen 1 - 2 each PO Q6H PRN #14 tablet 09/03/22 [Percocet 5-325 mg Tablet] Cyclobenzaprine [Flexeril] 10 mg PO TID PRN #20 tablet 12/03/22 Oxycodone HCl/Acetaminophen 1 - 2 each PO Q6H PRN #14 tablet 12/03/22 [Percocet 5-325 mg Tablet] Cyclobenzaprine [Flexeril] 10 mg PO TID PRN #20 tablet 03/20/23 Oxycodone HCl/Acetaminophen 1 - 2 each PO Q6H PRN #14 tablet 03/20/23 [Percocet 5-325 mg Tablet] - Allergies Allergies/Adverse Reactions: Allergies Allergy/AdvReac Type Severity Reaction Status Date / Time No Known Drug Allergies Allergy Verified 03/20/23 16:33 - Social History Does the pt smoke?: No Smoking Status: Never smoker Does the pt drink ETOH?: Yes Does the pt have substance abuse?: No - Immunizations Immunizations are current?: Yes - POLST Patient has POLST: No PD ED PE NORMAL - Vitals Vital signs reviewed: Yes - General General: Alert and oriented X 3, Other (Appears somewhat uncomfortable related to the back pain.) - Abdomen Abdomen: Normal bowel sounds, Soft, Non tender - Back Back: No spinal TTP, Other (The patient has equal and normal Achilles and patellar reflexes bilaterally. Normal sensation in all areas of the legs. Patient denies saddle anesthesia. Normal strength in flexion-extension at the ankles, knees, and flexion of the hips.) - Neuro Neuro: Alert and oriented X 3, Normal speech Results - Vitals Vitals: Vital Signs - 24 hr 03/20/23 03/20/23 16:34 17:16 Temperature 36.5 C 36.6 C Heart Rate 88 90 Respiratory 16 16 Rate Blood Pressure 150/90 H 152/98 H O2 Saturation 97 93 Oxygen O2 Source Room air PD Medical Decision Making - ED course ED course: This patient has seemingly uncomplicated musculoskeletal back pain. The patient has no "red flags." Specifically denies IV drug use, fevers, incontinence, saddle anesthesia. Spinal epidural abscess was considered, given that the patient has no fever, is not diabetic, has no spinal tenderness, does not use IV drugs, and has no bilateral neurologic symptoms, the diagnosis of spinal epidural abscess is considered exceedingly unlikely. In the department he received 2 mg of IM Dilaudid and 60 mg of IM Toradol. Departure - Departure Disposition: 01 Home, Self Care Clinical Impression: Back spasm Condition: Good Record reviewed to determine appropriate education?: Yes Instructions: ED Low Back Pain Injury Prescriptions: Cyclobenzaprine [Flexeril] 10 mg PO TID PRN #20 tablet PRN Reason: Spasms Oxycodone HCl/Acetaminophen [Percocet 5-325 mg Tablet] 1 - 2 each PO Q6H PRN #14 tablet PRN Reason: pain Comments: I sent your prescriptions electronically to the [facility] in [place]. Call your doctor to arrange a follow-up appointment, make the next available appointment. In the interim, return anytime if worse or if new symptoms develop. I am prescribing a short course of narcotic pain medication for you. These are potentially dangerous and addictive medications that should be used carefully. These medications may constipate you. Take an sset-cyx-ylpwzpw stool softener (docusate) twice daily with plenty of water while taking these medications. If you go 24 hours without a bowel movement, take [id number] miralax, per package instructions. Do not drink or drive while taking these medications. If you received narcotic or sedating medications while in the emergency department, do not drive for 24 hours. Store this medication in a safe, secure place and out of reach of children. It is a violation of federal law to give or sell this medication to another person or to use in a manner other than prescribed. The ED will not refill narcotic prescriptions, including prescriptions lost or stolen. To dispose of unwanted medications: 1. [facility] provides a drop box for medication in pill form only (no liquids) 8:00 am to 4:30 p.m. Friday-Friday in the lobby of the [facility], [address] [place] [address]. Empty pills into ziplock bag before disposal. Call [phone] for information. 2.[employer] is a free service available to all [facility] residents. Go to [email or web address] Note that many narcotic pain relievers also contain Tylenol/acetaminophen. Please ensure that your total dose of acetaminophen from all sources does not exceed 3 g (3000 mg) per day. Forms: Activity restrictions Discharge Date/Time: 03/20/23 17:20
[2023-03-20 17:22] VITALS: BP 152/98; O2SAT 93
== END 2023-03-20 17:20 | disposition home or self-care (01) ==
LOC: ED 16:31
DX: M62.830 Muscle spasm of back (principal)
CPT/HCPCS: 96372; 99283; J1170

== ENCOUNTER 2023-04-04 09:11 | Day surgery (SDC) | payer OTHER ==
[2023-04-04] MEDS ORDERED: LACTATED RINGERS 1,000 ML IV ONE (09:20)
[2023-04-04] MEDS ORDERED: PROPOFOL 500 MG/50 ML 500 MG/50 ML VIAL ONE (09:38)
--- NOTE | 2023-04-04 09:50 | ANESTHESIA ---
Pre-Anesthesia VS, & Labs - Diagnosis screening exam - Procedure colonoscopy Vital Signs: Temp Pulse Resp BP Pulse Ox O2 Flow Rate 36.4 C L 88 20 144/92 H 96 04/04/23 09:20 04/04/23 09:20 04/04/23 09:20 04/04/23 09:20 04/04/23 09:20 Height: 5 ft 7 in Weight (kg): 96.1 kg Body Mass Index: 33.1 BMI Classification: Obese - NPO >8 hours Home Medications and Allergies Active Medications Acetaminophen (Acetaminophen 500 Mg Tablet) 1,000 mg PO ONCE COURTNEY Allergies/Adverse Reactions: Allergies Allergy/AdvReac Type Severity Reaction Status Date / Time No Known Drug Allergies Allergy Verified 03/20/23 16:33 Anes History & Medical History - Anesthetic History Anesthesia Complications: reports: No previous complications - Medical History Cardiovascular: reports: None Pulmonary: reports: None Gastrointestinal: reports: None Urinary: reports: Kidney stones Neuro: reports: None Musculoskeletal: reports: Chronic back pain Endocrine/Autoimmune: reports: None Blood Disorders: reports: None Skin: reports: None Smoking Status: Never smoker Psychosocial: reports: No issues indicated History of Cancer?: No - Surgical History Eyes Ears Nose Throat (EENT): reports: Other Orthopedic: reports: Spine surgery, Other Exam General: Alert Dental: WNL Mouth Openin Fingerbreadth Neck Mobility: Normal Mallampati classification: III Thyromental Distance: less than 4 cm Mental/Cognitive Status: Alert/Oriented X3, Normal for patient Plan Anesthesia Type: General, Total IV Consent for Procedure(s) Verified and Reviewed: Yes Code Status: Attempt Resuscitation ASA classification: 2-Mild systemic disease Is this case an emergency?: No
[2023-04-04] MEDS ORDERED: ACETAMINOPHEN 500 MG TABLET PO SCH (10:00)
[2023-04-04] MEDS ORDERED: SIMETHICONE 40 MG/0.6 ML 15 ML BOTTLE PO ONE (10:19)
[2023-04-04] MEDS ORDERED: LACTATED RINGERS 500 ML IV ONE (10:36)
[2023-04-04 11:09] VITALS: BP 118/84; O2SAT 99
--- NOTE | 2023-04-04 15:07 | ANESTHESIA POST OP EVALUATION ---
Anesthesia Post Eval - Post Anesthesia Eval Vitals: Last Vital Signs Temp 36.3 C L 04/04/23 10:36 Pulse 85 04/04/23 11:01 Resp 18 04/04/23 11:01 BP 118/84 H 04/04/23 11:01 Pulse Ox 99 04/04/23 11:01 O2 Flow Rate CV Function Including HR & BP: Stable Pain Control: Satisfactory Nausea & Vomiting: Negative Mental Status: Baseline Respiratory Status: Airway Patent Hydration Status: Satisfactory Anesthesia Complications: None
== END 2023-04-04 09:12 | disposition home or self-care (01) ==
LOC: SDS 09:11
PROVIDERS: ATTEND Surgery
DX: Z12.11 Encounter for screening for malignant neoplasm of colon (principal); E66.9 Obesity, unspecified; Z68.33 Body mass index [BMI] 33.0-33.9, adult
CPT/HCPCS: 45378; A9270; J7120

== ENCOUNTER 2023-04-16 11:31 | Emergency (ER) | payer OTHER ==
[2023-04-16] MEDS ORDERED: KETOROLAC 60 MG/2 ML VIAL IM STA (16:25)
[2023-04-16] MEDS ORDERED: ONDANSETRON ODT 4 MG TABLET TL STA (16:25)
[2023-04-16] MEDS ORDERED: HYDROmorphone 1 MG/ML CARPUJECT IM STA (16:25)
--- NOTE | 2023-04-16 16:26 | ED Physician Documentation ---
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 It started today, while bending over and coughing simultaneously. It's in the low back. Radiates a into the buttocks. Denies weakness, numbness, tingling, anesthesia, incontinence, or fevers. PD PAST MEDICAL HISTORY - Past Medical History Cardiovascular: None Respiratory: None Neuro: None Endocrine/Autoimmune: None GI: None : Kidney stones HEENT: None Psych: None Musculoskeletal: Chronic back pain Derm: None - Past Surgical History Past Surgical History: Yes Ortho: Spine surgery, Other HEENT: Other - Present Medications Home Medications: Ambulatory Orders Medication Instructions Recorded Confirmed Ibuprofen [Motrin] 800 mg PO Q8H PRN #30 tablet 09/03/22 04/03/23 Cyclobenzaprine [Flexeril] 10 mg PO TID PRN #20 tablet 04/16/23 Oxycodone HCl/Acetaminophen 1 - 2 each PO Q6H PRN #14 tablet 04/16/23 [Percocet 5-325 mg Tablet] - Allergies Allergies/Adverse Reactions: Allergies Allergy/AdvReac Type Severity Reaction Status Date / Time No Known Drug Allergies Allergy Verified 04/16/23 13:01 - Social History Does the pt smoke?: No Smoking Status: Never smoker Does the pt drink ETOH?: Yes Does the pt have substance abuse?: No - Immunizations Immunizations are current?: Yes - POLST Patient has POLST: No PD ED PE NORMAL - Vitals Vital signs reviewed: Yes - General General: Alert and oriented X 3, No acute distress - Abdomen Abdomen: Non tender - Back Back: No spinal TTP - Neuro Neuro: Alert and oriented X 3, Normal speech Results - Vitals Vitals: Vital Signs - 24 hr 04/16/23 04/16/23 12:56 17:23 Temperature 36.3 C L Heart Rate 95 95 Respiratory 16 16 Rate Blood Pressure 154/95 H 165/105 H O2 Saturation 97 98 Oxygen O2 Source Room air PD Medical Decision Making - ED course ED course: In the emergency department, similar to prior visits he was administered IM Toradol and Dilaudid with improvement. This patient has seemingly uncomplicated musculoskeletal back pain. The patient has no "red flags." Specifically denies IV drug use, fevers, incontinence, saddle anesthesia. Spinal epidural abscess was considered, given that the patient has no fever, is not diabetic, has no spinal tenderness, does not use IV drugs, and has no bilateral neurologic symptoms, the diagnosis of spinal epidural abscess is considered exceedingly unlikely. Departure - Departure Disposition: Home, Self Care Clinical Impression: Back spasm Condition: Good Record reviewed to determine appropriate education?: Yes Instructions: ED Low Back Pain Injury Prescriptions: Cyclobenzaprine [Flexeril] 10 mg PO TID PRN #20 tablet PRN Reason: Spasms Oxycodone HCl/Acetaminophen [Percocet 5-325 mg Tablet] 1 - 2 each PO Q6H PRN #14 tablet PRN Reason: pain Comments: [facility] Followup with your PMD, return if worse. Discharge Date/Time: 04/16/23 17:23
[2023-04-16 17:24] VITALS: BP 165/105; O2SAT 98
--- NOTE | 2023-04-17 13:11 | ED Physician Documentation ---
ED Addendum - Addendum Addendum: 04/17/23 13:10 [facility] pharmacy called and said they had not received the electronic prescription from yesterday. I retransmitted it to them which involves writing a new prescription. The old 1 was canceled.
== END 2023-04-16 17:23 | disposition home or self-care (01) ==
LOC: ED 11:31
DX: M62.830 Muscle spasm of back (principal)
CPT/HCPCS: 96372; 99283; J1170; Q0162

== ENCOUNTER 2023-10-15 21:28 | Emergency (ER) | payer OTHER ==
[2023-10-15 22:21] LABS: BILIRUBIN,URINE NEGATIVE (NEGATIVE); GLUCOSE, URINE (UA) NEGATIVE (NEGATIVE); KETONES,URINE (UA) NEGATIVE (NEGATIVE); LEUKOCYTE ESTERASE, URINE NEGATIVE (NEGATIVE); NITRITE,URINE NEGATIVE (NEGATIVE); OCCULT BLOOD,URINE LARGE (NEGATIVE); PROTEIN,URINE 30 mg/dL (NEGATIVE); UROBILINOGEN,URINE 0.2 (NORMAL) E.U./dL (NORMAL)
[2023-10-15 22:27] LABS: CLARITY,URINE BLOODY (CLEAR); RBC,URINE TNTC /HPF (0-5); WBC,URINE 0-3 /HPF (0-3)
[2023-10-15 22:27] LABS: ALBUMIN 4.8 g/dL (3.2-5.5); BILIRUBIN,TOTAL 0.4 mg/dL (0.2-1.0); CALCIUM 9.4 mg/dL (8.5-10.3); CREATININE 0.9 mg/dL (0.6-1.3); POTASSIUM 3.7 mmol/L (3.5-4.5); TOTAL PROTEIN 7.2 g/dL (6.4-8.9)
[2023-10-15 22:28] LABS: BASOPHILS # (AUTO) 0.1 10^3/uL (0.0-0.1); BASOPHILS % (AUTO) 0.7 %; EOSINOPHILS # (AUTO) 0.3 10^3/uL (0.0-0.7); EOSINOPHILS % (AUTO) 3.5 %; HCT - HEMATOCRIT 44.8 % (42.0-52.0); HGB - HEMOGLOBIN 14.9 g/dL (14.0-18.0); LYMPHOCYTES # (AUTO) 3.2 10^3/uL (1.5-3.5); LYMPHOCYTES % (AUTO) 38.1 %; MEAN CORPUSCULAR HEMOGLOBIN 29.4 pg (27.0-31.0); MEAN CORPUSCULAR HGB CONC 33.3 g/dL (32.0-36.0); MEAN CORPUSCULAR VOLUME 88.4 fL (80.0-94.0); MEAN PLATELET VOLUME 9.1 fL (7.4-11.4); MONOCYTES # (AUTO) 0.7 10^3/uL (0.0-1.0); NEUTROPHILS # (AUTO) 4.1 10^3/uL (1.5-6.6); NEUTROPHILS % (AUTO) 48.5 %; PLT - PLATELET COUNT 408 10^3/uL (130-450); RED BLOOD COUNT 5.07 10^6/uL (4.70-6.10); RED CELL DISTRIBUTION WIDTH 11.9 % (12.0-15.0); WHITE BLOOD COUNT 8.4 x10^3/uL (4.8-10.8)
[2023-10-15 22:28] LABS: BACTERIA,URINE Rare /HPF (None Seen); SQUAMOUS EPITHELIAL CELL,UR RARE Squamous (<= Few)
--- NOTE | 2023-10-15 23:53 | ED Physician Documentation ---
History of Present Illness - Stated complaint Stated Complaint: - Chief complaint Chief Complaint: General - History obtained from History obtained from: Patient - Additonal information Additional information: 48-year-old man with history of kidney stones presents with painless hematuria for the past day or so. Denies pain, dysuria, back pain, abdominal pain, nausea or vomiting. PD PAST MEDICAL HISTORY - Past Medical History Cardiovascular: None Respiratory: None Neuro: None Endocrine/Autoimmune: None GI: None : Kidney stones HEENT: None Psych: None Musculoskeletal: Chronic back pain Derm: None - Past Surgical History Past Surgical History: Yes Ortho: Spine surgery, Other HEENT: Other - Present Medications Home Medications: Ambulatory Orders Medication Instructions Recorded Confirmed Ibuprofen [Motrin] 800 mg PO Q8H PRN #30 tablet 09/03/22 04/03/23 Cyclobenzaprine [Flexeril] 10 mg PO TID PRN #20 tablet 04/16/23 Oxycodone HCl/Acetaminophen 1 - 2 each PO Q6H PRN #14 tablet 04/16/23 [Percocet 5-325 mg Tablet] Oxycodone HCl/Acetaminophen 1 each PO Q6H PRN #14 tablet 04/17/23 [Percocet 5-325 mg Tablet] Ketorolac [Toradol] 10 mg PO Q6H PRN #20 tablet 10/15/23 Ondansetron Odt [Zofran Odt] 4 mg TL Q6H PRN #10 tablet 10/15/23 Tamsulosin [Flomax] 0.4 mg PO DAILY 14 Days #14 tab 10/15/23 - Allergies Allergies/Adverse Reactions: Allergies Allergy/AdvReac Type Severity Reaction Status Date / Time No Known Drug Allergies Allergy Verified 10/15/23 22:01 - Social History Does the pt smoke?: No Smoking Status: Never smoker Does the pt drink ETOH?: Yes Does the pt have substance abuse?: No - Immunizations Immunizations are current?: Yes - POLST Patient has POLST: No PD ED PE NORMAL - Vitals Vital signs reviewed: Yes - General General: Alert and oriented X 3, No acute distress, Well developed/nourished - HEENT HEENT: Atraumatic, PERRL, EOMI - Neck Neck: Supple, no meningeal sign - Abdomen Abdomen: Non tender, Non distended - Back Back: No CVA TTP - Derm Derm: Normal color, Warm and dry Results - Vitals Vitals: Vital Signs - 24 hr 10/15/23 21:53 Temperature 36.3 C L Heart Rate 69 Respiratory 17 Rate Blood Pressure 151/105 H O2 Saturation 99 Oxygen O2 Source Room air - Labs Labs: Laboratory Tests 10/15/23 10/15/23 10/15/23 22:00 22:10 22:10 WBC 8.4 RBC 5.07 Hgb 14.9 Hct 44.8 MCV 88.4 MCH 29.4 MCHC 33.3 RDW 11.9 L Plt Count 408 MPV 9.1 Neut # (Auto) 4.1 Lymph # (Auto) 3.2 [place] # (Auto) 0.7 Eos # (Auto) 0.3 Baso # (Auto) 0.1 Absolute Nucleated RBC 0.00 Nucleated RBC % 0.0 Sodium 134 L Potassium 3.7 Chloride 101 Carbon Dioxide 27 Anion Gap 6.0 BUN 16 Creatinine 0.9 Estimated GFR (MDRD) 90 Glucose 97 Calcium 9.4 Total Bilirubin 0.4 AST 42 ALT 103 H Alkaline Phosphatase 56 Total Protein 7.2 Albumin 4.8 Globulin 2.4 Albumin/Globulin Ratio 2.0 Lipase 39 Urine Color RED/BLOODY Urine Clarity BLOODY Urine pH 6.0 Ur Specific Guin 1.025 Urine Protein 30 H Urine Glucose (UA) NEGATIVE Urine Ketones NEGATIVE Urine Occult Blood LARGE H Urine Nitrite NEGATIVE Urine Bilirubin NEGATIVE Urine Urobilinogen 0.2 (NORMAL) Ur Leukocyte Esterase NEGATIVE Urine RBC TNTC H Urine WBC 0-3 Ur Squamous Epith Cells RARE Squamous Urine Bacteria Rare Ur Microscopic Review INDICATED Urine Culture Comments NOT INDICATED PD Medical Decision Making - ED course ED course: 48-year-old man presents with painless hematuria, with history of kidney stones on x-ray. His [id number] ultrasound showed no hydronephrosis but he does have visible stones. Creatinine normal, urinalysis shows no signs of infection. Plan to follow-up outpatient urology. Return precautions given. Pain and nausea meds sent to pharmacy as a precaution. Departure - Departure Disposition: 01 Home, Self Care Clinical Impression: Kidney stones Condition: Stable Follow-Up: Mirian Cronin MD [Physician No Access] - Prescriptions: Tamsulosin [Flomax] 0.4 mg PO DAILY 14 Days #14 tab Ketorolac [Toradol] 10 mg PO Q6H PRN #20 tablet PRN Reason: Pain Ondansetron Odt [Zofran Odt] 4 mg TL Q6H PRN #10 tablet PRN Reason: Nausea / Vomiting Comments: You were seen in the emergency department for Kidney stones. Prescription sent to [facility]. Please follow-up with Urology and return to the emergency department if you have any new or worsening symptoms or other concerns.
[2023-10-16 00:11] VITALS: BP 167/100; O2SAT 98
== END 2023-10-16 00:01 | disposition home or self-care (01) ==
LOC: ED 21:28
DX: N20.0 Calculus of kidney (principal); Z87.442 Personal history of urinary calculi
CPT/HCPCS: 36415; 80053; 81001; 81003; 83690; 85025; 87086; 99283; 99284

== ENCOUNTER 2023-11-06 07:18 | Emergency (ER) | payer OTHER ==
[2023-11-06] MEDS: ONDANSETRON 4 MG/2 ML VIAL IVP STA (07:40)
[2023-11-06] MEDS: KETOROLAC 30 MG/ML VIAL IVP STA (07:40)
[2023-11-06] MEDS: SODIUM CHLORIDE 0.9% 1,000 ML IV STA ×3 (07:41→10:37)
[2023-11-06 07:42] LABS: BASOPHILS # (AUTO) 0.1 10^3/uL (0.0-0.1); EOSINOPHILS # (AUTO) 0.2 10^3/uL (0.0-0.7); EOSINOPHILS % (AUTO) 3.2 %; HCT - HEMATOCRIT 45.7 % (42.0-52.0); HGB - HEMOGLOBIN 14.9 g/dL (14.0-18.0); LYMPHOCYTES % (AUTO) 43.6 %; MEAN CORPUSCULAR HEMOGLOBIN 29.1 pg (27.0-31.0); MEAN CORPUSCULAR HGB CONC 32.6 g/dL (32.0-36.0); MEAN CORPUSCULAR VOLUME 89.3 fL (80.0-94.0); MEAN PLATELET VOLUME 9.5 fL (7.4-11.4); MONOCYTES # (AUTO) 0.8 10^3/uL (0.0-1.0); MONOCYTES % (AUTO) 11.1 %; NEUTROPHILS # (AUTO) 2.8 10^3/uL (1.5-6.6); NEUTROPHILS % (AUTO) 40.1 %; PLT - PLATELET COUNT 351 10^3/uL (130-450); RED BLOOD COUNT 5.12 10^6/uL (4.70-6.10); RED CELL DISTRIBUTION WIDTH 11.8 % (12.0-15.0); WHITE BLOOD COUNT 6.9 x10^3/uL (4.8-10.8)
[2023-11-06] MEDS: HYDROmorphone 1 MG/ML CARPUJECT IVP STA ×3 (07:47→09:34)
[2023-11-06 07:53] LABS: ALBUMIN 4.7 g/dL (3.2-5.5); ALBUMIN/GLOBULIN RATIO 1.7 (1.0-2.2); BILIRUBIN,TOTAL 0.3 mg/dL (0.2-1.0); CALCIUM 10.6 mg/dL (8.5-10.3); CREATININE 1.1 mg/dL (0.6-1.3); POTASSIUM 4.2 mmol/L (3.5-4.5); TOTAL PROTEIN 7.5 g/dL (6.4-8.9)
--- NOTE | 2023-11-06 08:13 | ED Physician Documentation ---
History of Present Illness - Stated complaint Stated Complaint: FLANK PX - Chief complaint Chief Complaint: Abd Pain - History obtained from History obtained from: Patient - History of Present Illness Timing: Today, How many hours ago (1) Pain level max: 9 Pain level now: 9 - Additonal information Additional information: 48 year old male with L flank pain this am. Patient states that this feels similar to prior episodes of kidney stones. Has had several stones in the past, none have needed to be removed. Largest was 5 mm. Had nausea and vomiting this morning. Tried to take Tylenol but could not keep it down. No fevers. Had some chills. No urinary symptoms. Nothing makes it better or worse. Review of Systems Constitutional: denies: Fever Nose: denies: Rhinorrhea / runny nose, Congestion Respiratory: denies: Cough GI: reports: Abdominal Pain (Left flank, radiates to the left groin), Nausea, Vomiting. denies: Diarrhea : denies: Dysuria, Frequency, Hesitancy Skin: denies: Rash Musculoskeletal: denies: Neck pain, Back pain Neurologic: denies: Headache PD PAST MEDICAL HISTORY - Past Medical History Past Medical History: Yes Cardiovascular: None Respiratory: None Neuro: None Endocrine/Autoimmune: None GI: None : Kidney stones HEENT: None Psych: None Musculoskeletal: Chronic back pain Derm: None - Past Surgical History Past Surgical History: Yes Ortho: Spine surgery, Other HEENT: Other - Present Medications Home Medications: Ambulatory Orders Medication Instructions Recorded Confirmed Ibuprofen [Motrin] 800 mg PO Q8H PRN #30 tablet 09/03/22 04/03/23 Cyclobenzaprine [Flexeril] 10 mg PO TID PRN #20 tablet 04/16/23 Oxycodone HCl/Acetaminophen 1 - 2 each PO Q6H PRN #14 tablet 04/16/23 [Percocet 5-325 mg Tablet] Oxycodone HCl/Acetaminophen 1 each PO Q6H PRN #14 tablet 04/17/23 [Percocet 5-325 mg Tablet] Ketorolac [Toradol] 10 mg PO Q6H PRN #20 tablet 10/15/23 Ondansetron Odt [Zofran Odt] 4 mg TL Q6H PRN #10 tablet 10/15/23 Tamsulosin [Flomax] 0.4 mg PO DAILY 14 Days #14 tab 10/15/23 Ibuprofen [Motrin] 800 mg PO Q8H PRN #30 tablet 11/06/23 Ondansetron Odt [Zofran] 4 mg TL Q6H PRN #10 tablet 11/06/23 Tamsulosin [Flomax] 0.4 mg PO DAILY #14 cap 11/06/23 oxyCODONE [Roxicodone] 5 - 10 mg PO Q6H PRN #20 tablet 11/06/23 MDD 6 - Allergies Allergies/Adverse Reactions: Allergies Allergy/AdvReac Type Severity Reaction Status Date / Time No Known Drug Allergies Allergy Verified 11/06/23 07:24 - Social History Does the pt smoke?: No Smoking Status: Never smoker Does the pt drink ETOH?: Yes Does the pt have substance abuse?: No - Immunizations Immunizations are current?: Yes - POLST Patient has POLST: No PD ED PE NORMAL - Vitals Vital signs reviewed: Yes - General General: Alert and oriented X 3, Other (Appears uncomfortable, holding his left flank) - HEENT HEENT: PERRL, Moist mucous membranes - Neck Neck: Supple, no meningeal sign - Cardiac Cardiac: RRR, Strong equal pulses - Respiratory Respiratory: No respiratory distress, Clear bilaterally - Abdomen Abdomen: Soft, Non tender, Non distended - Back Back: No CVA TTP, No spinal TTP - Derm Derm: Warm and dry - Extremities Extremities: No edema - Neuro Neuro: Alert and oriented X 3 - Psych Psych: Normal mood, Normal affect Results - Vitals Vitals: Vital Signs - 24 hr 11/06/23 11/06/23 11/06/23 07:23 09:20 10:33 Temperature 36.4 C L 36.3 C L Heart Rate 93 78 80 Respiratory 20 18 18 Rate Blood Pressure 144/96 H 142/98 H 155/106 H O2 Saturation 100 97 100 11/06/23 11:36 Temperature 36 C L Heart Rate 72 Respiratory 18 Rate Blood Pressure 132/101 H O2 Saturation 100 Oxygen O2 Source Room air - Labs Labs: Laboratory Tests 11/06/23 11/06/23 11/06/23 07:30 07:30 10:19 WBC 6.9 RBC 5.12 Hgb 14.9 Hct 45.7 MCV 89.3 MCH 29.1 MCHC 32.6 RDW 11.8 L Plt Count 351 MPV 9.5 Neut # (Auto) 2.8 Lymph # (Auto) 3.0 Otero # (Auto) 0.8 Eos # (Auto) 0.2 Baso # (Auto) 0.1 Absolute Nucleated RBC 0.00 Nucleated RBC % 0.0 Sodium 138 Potassium 4.2 Chloride 105 Carbon Dioxide 27 Anion Gap 6.0 BUN 20 Creatinine 1.1 Estimated GFR (MDRD) 72 L Glucose 116 H Calcium 10.6 H Total Bilirubin 0.3 AST 23 ALT 53 Alkaline Phosphatase 67 Total Protein 7.5 Albumin 4.7 Globulin 2.8 Albumin/Globulin Ratio 1.7 Lipase 33 Urine Color LIGHT YELLOW Urine Clarity CLEAR Urine pH 6.0 Ur Specific Clint 1.020 Urine Protein NEGATIVE Urine Glucose (UA) NEGATIVE Urine Ketones NEGATIVE Urine Occult Blood LARGE H Urine Nitrite NEGATIVE Urine Bilirubin NEGATIVE Urine Urobilinogen 0.2 (NORMAL) Ur Leukocyte Esterase NEGATIVE Urine RBC 6-10 H Urine WBC 0-3 Ur Squamous Epith Cells NONE SEEN Urine Bacteria Few Ur Microscopic Review INDICATED Urine Culture Comments NOT INDICATED - Rads (name of study) CT abdomen pelvis Relevant Findings:: Final report received, See rad report PD Medical Decision Making - ED course Complexity details: reviewed results, re-evaluated patient, considered differential, d/w patient ED course: 48-year-old male with a left-sided ureteral stone, 4 mm. Given IV Dilaudid, Toradol, lidocaine. Given normal saline. Pain well-controlled. Will place on pain medications and nausea medications for home. Urinalysis does not show any signs of infection. We will have him follow-up with his PCP for further care. Also given information for urology follow-up as he does have several other stones in his kidneys. Patient counseled regarding signs and symptoms for which I believe and urgent re-evaluation would be necessary. Patient with good understanding of and agreement to plan and is comfortable going home at this time This document was made in part using voice recognition software. While efforts are made to proofread this document, sound alike and grammatical errors may occur. Departure - Departure Disposition: 01 Home, Self Care Clinical Impression: Kidney stones, Ureteral stone, Renal colic Condition: Good Instructions: ED Stone Renal W Colic Follow-Up: your,doctor in 3 days [Other] Lion Acosta MD [Provider Admit Priv/Credential] - Prescriptions: Tamsulosin [Flomax] 0.4 mg PO DAILY #14 cap Ibuprofen [Motrin] 800 mg PO Q8H PRN #30 tablet PRN Reason: PAIN &/OR FEVER oxyCODONE [Roxicodone] 5 - 10 mg PO Q6H PRN #20 tablet MDD 6 PRN Reason: pain Ondansetron Odt [Zofran] 4 mg TL Q6H PRN #10 tablet PRN Reason: Nausea / Vomiting Comments: You have a 4 mm left-sided ureteral stone. This should pass on its own. Your prescriptions were sent to [facility] in [place]. Please follow-up with urology. Make sure you are drinking plenty of fluids. Your CT scan reading is below. Please return if you worsen. I am prescribing a short course of narcotic pain medication for you. These are potentially dangerous and addictive medications that should be used carefully. These medications may constipate you. Take an smtp-aum-yakbtms stool softener (docusate) twice daily with plenty of water while taking these medications. If you go 24 hours without a bowel movement, take nymq-cym-rpzzlwp miralax, per package instructions. Do not drink or drive while taking these medications. If you received narcotic or sedating medications while in the emergency department, do not drive for 24 hours. Store this medication in a safe, secure place and out of reach of children. It is a violation of federal law to give or sell this medication to another person or to use in a manner other than prescribed. The ED will not refill narcotic prescriptions, including prescriptions lost or stolen. To dispose of unwanted medications: 1. [facility] at [address] in [place] has a medication drop box. They accept prescription medications (in pill form) Friday through Friday 9:00 a.m. to 5:00 p.m. 2. The [facility] [employer] [facility] accepts prescription medications (in pill form only) for disposal year round. Call for more information. 3. Contact the [facility] for the next [facility] sponsored prescription drug collection event. , [phone], or [phone]; EXAM: [id number] CT/ABPEWO ([id number]) PROCEDURE: Abdomen/Pelvis WO INDICATIONS: L flank pain, h/o renal stones TECHNIQUE: A CT scan of the abdomen and pelvis was performed without the use of intravenous contrast. Images were recorded and evaluated at appropriate window settings. Reformats: coronal and sagittal. For radiation dose reduction, the following was used: automated exposure control, adjustment of mA and/or kV according to patient size. COMPARISON: 10/19/2018. FINDINGS: Image quality: Diagnostic. Lower chest: Unremarkable. Liver: No contour-deforming mass. Gallbladder: No radiopaque stones or wall thickening. Biliary tree: No intrahepatic or extrahepatic dilation, accounting for age. Spleen: No splenomegaly. Pancreas: No pancreatic ductal dilation. Adrenals: No adrenal nodule. Right Kidney: There are numerous tiny stones. There is a posterior middle pole stone measuring 7 mm with Hounsfield measurement of 1530.4. There is a nonobstructing lower pole stone measuring 7 mm with a Hounsfield measurement of 1039.6. No hydronephrosis. Right Ureter: Unremarkable Left Kidney: Nonobstructing lower pole stone measuring 9 mm with a Hounsfield measurement of 1478. Mild to moderate hydronephrosis. Left Ureter: Obstructing UPJ stone measuring 4 mm. Stomach, bowel and peritoneum: No gastric or small bowel dilation. No abnormal wall thickening. No pathologic free fluid. Lymph nodes: No central or retroperitoneal adenopathy. Vessels: No infrarenal aortic aneurysm. Reproductive organs: Unremarkable. Bladder: Bladder wall thickness is normal, accounting for underdistention. No calcified bladder stones. Pelvic lymph nodes: No adenopathy by size criteria. Bones: No aggressive osseous abnormality. 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 Other: There are small bilateral inguinal hernias, right greater than left. IMPRESSION: 1. A 4 mm stone obstructs the left EJ resulting in mild to moderate left hydronephrosis. 2. Bilateral nonobstructing renal stones as described above with Hounsfield measurements of the largest stones noted. Forms: PCP List Discharge Date/Time: 11/06/23 11:37
--- NOTE | 2023-11-06 08:18 | CT Report ---
PROCEDURE: Abdomen/Pelvis WO INDICATIONS: L flank pain, h/o renal stones TECHNIQUE: A CT scan of the abdomen and pelvis was performed without the use of intravenous contrast. Images we re recorded and evaluated at appropriate window settings. Reformats: coronal and sagittal. For radiat ion dose reduction, the following was used: automated exposure control, adjustment of mA and/or kV ac cording to patient size. COMPARISON: 10/19/2018. FINDINGS: Image quality: Diagnostic. Lower chest: Unremarkable. Liver: No contour-deforming mass. Gallbladder: No radiopaque stones or wall thickening. Biliary tree: No intrahepatic or extrahepatic dilation, accounting for age. Spleen: No splenomegaly. Pancreas: No pancreatic ductal dilation. Adrenals: No adrenal nodule. Right Kidney: There are numerous tiny stones. There is a posterior middle pole stone measuring 7 mm w ith Hounsfield measurement of 1530.4. There is a nonobstructing lower pole stone measuring 7 mm with a Hounsfield measurement of 1039.6. No hydronephrosis. Right Ureter: Unremarkable Left Kidney: Nonobstructing lower pole stone measuring 9 mm with a Hounsfield measurement of 1478. Mi ld to moderate hydronephrosis. Left Ureter: Obstructing UPJ stone measuring 4 mm. Stomach, bowel and peritoneum: No gastric or small bowel dilation. No abnormal wall thickening. No pa thologic free fluid. Lymph nodes: No central or retroperitoneal adenopathy. Vessels: No infrarenal aortic aneurysm. Reproductive organs: Unremarkable. Bladder: Bladder wall thickness is normal, accounting for underdistention. No calcified bladder stone s. Pelvic lymph nodes: No adenopathy by size criteria. Bones: No aggressive osseous abnormality. 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 Other: There are small bilateral inguinal hernias, right greater than left. IMPRESSION: 1. A 4 mm stone obstructs the left EJ resulting in mild to moderate left hydronephrosis. 2. Bilateral nonobstructing renal stones as described above with Hounsfield measurements of the large st stones noted. Reviewed by: Abdoulaye Godinez MD on 11/06/2023 8:17 AM PDT Approved by: Abdoulaye Godinez MD on 11/06/2023 8:17 AM PDT Station ID: [id number]
[2023-11-06] MEDS: LIDOCAINE-MPF 2% 7.5 ML in SODIUM CHLORIDE 0.9% 50 ML IV STA (08:58)
[2023-11-06 10:37] VITALS: O2SAT 100
[2023-11-06 10:42] LABS: BILIRUBIN,URINE NEGATIVE (NEGATIVE); GLUCOSE, URINE (UA) NEGATIVE (NEGATIVE); KETONES,URINE (UA) NEGATIVE (NEGATIVE); LEUKOCYTE ESTERASE, URINE NEGATIVE (NEGATIVE); NITRITE,URINE NEGATIVE (NEGATIVE); OCCULT BLOOD,URINE LARGE (NEGATIVE); PROTEIN,URINE NEGATIVE (NEGATIVE); UROBILINOGEN,URINE 0.2 (NORMAL) E.U./dL (NORMAL)
[2023-11-06 10:44] LABS: CLARITY,URINE CLEAR (CLEAR)
[2023-11-06 11:03] LABS: WBC,URINE 0-3 /HPF (0-3)
[2023-11-06 11:04] LABS: BACTERIA,URINE Few /HPF (None Seen); SQUAMOUS EPITHELIAL CELL,UR NONE SEEN (<= Few)
[2023-11-06] MEDS: oxyCODONE 5 MG TABLET PO STA (11:31)
[2023-11-06 11:39] VITALS: BP 132/101
== END 2023-11-06 11:37 | disposition home or self-care (01) ==
LOC: ED 07:18
DX: N13.2 Hydronephrosis with renal and ureteral calculous obstruction (principal); Z87.442 Personal history of urinary calculi; Z79.899 Other long term (current) drug therapy
CPT/HCPCS: 36415; 74176; 80053; 81001; 83690; 85025; 96361; 96365; 96375; 96376; 99284; A9270; J1170; J7040; 81003; 87086

== ENCOUNTER 2023-12-04 17:15 | Emergency (ER) | payer OTHER ==
[2023-12-04 17:33] VITALS: O2SAT 99
[2023-12-04 17:49] LABS: BILIRUBIN,URINE NEGATIVE (NEGATIVE); GLUCOSE, URINE (UA) NEGATIVE (NEGATIVE); KETONES,URINE (UA) TRACE mg/dL (NEGATIVE); LEUKOCYTE ESTERASE, URINE NEGATIVE (NEGATIVE); NITRITE,URINE NEGATIVE (NEGATIVE); OCCULT BLOOD,URINE LARGE (NEGATIVE); PH,URINE 5.5 PH (5.0-7.5); PROTEIN,URINE 100 mg/dL (NEGATIVE); UROBILINOGEN,URINE 0.2 (NORMAL) E.U./dL (NORMAL)
[2023-12-04 17:52] LABS: CLARITY,URINE CLOUDY (CLEAR)
[2023-12-04 18:05] LABS: BACTERIA,URINE None Seen /HPF (None Seen); RBC,URINE TNTC /HPF (0-5); SQUAMOUS EPITHELIAL CELL,UR NONE SEEN (<= Few); WBC,URINE 0-3 /HPF (0-3)
--- NOTE | 2023-12-04 18:15 | ED Physician Documentation ---
History of Present Illness - Stated complaint Stated Complaint: - Chief complaint Chief Complaint: General - Additonal information Additional information: 48-year-old male with known history of renal calculi presents emergency department for hematuria. Patient has 2 kidney stones with him in a cup that he brought in from home said that about a week ago he passed 2 kidney stones without any difficulty starting to have hematuria today he does not have any abdominal pain or flank pain but he is worried that he is going to start having pain again soon he is all out of his pain medications. He is on Flomax and he has an appointment with his urologist the at [facility]. No recent fevers or chills no nausea or vomiting. PD PAST MEDICAL HISTORY - Past Medical History Past Medical History: Yes Cardiovascular: None Respiratory: None Neuro: None Endocrine/Autoimmune: None GI: None : Kidney stones HEENT: None Psych: None Musculoskeletal: Chronic back pain Derm: None - Past Surgical History Past Surgical History: Yes Ortho: Spine surgery, Other HEENT: Other - Present Medications Home Medications: Ambulatory Orders Medication Instructions Recorded Confirmed Ibuprofen [Motrin] 800 mg PO Q8H PRN #30 tablet 09/03/22 12/04/23 Cyclobenzaprine [Flexeril] 10 mg PO TID PRN #20 tablet 04/16/23 12/04/23 Ondansetron Odt [Zofran Odt] 4 mg TL Q6H PRN #10 tablet 10/15/23 12/04/23 Tamsulosin [Flomax] 0.4 mg PO DAILY 14 Days #14 tab 10/15/23 12/04/23 Tamsulosin [Flomax] 1 cap PO DAILY #14 cap 12/04/23 oxyCODONE [Roxicodone] 5 mg PO Q4-6H PRN #15 tablet 12/04/23 - Allergies Allergies/Adverse Reactions: Allergies Allergy/AdvReac Type Severity Reaction Status Date / Time No Known Drug Allergies Allergy Verified 11/06/23 07:24 - Social History Does the pt smoke?: No Smoking Status: Never smoker Does the pt drink ETOH?: Yes Does the pt have substance abuse?: No - Immunizations Immunizations are current?: Yes - POLST Patient has POLST: No PD ED PE NORMAL - Vitals Vital signs reviewed: Yes - General General: Alert and oriented X 3, No acute distress, Well developed/nourished - HEENT HEENT: Atraumatic, PERRL - Neck Neck: Supple, no meningeal sign - Cardiac Cardiac: RRR - Respiratory Respiratory: No respiratory distress, Clear bilaterally - Abdomen Abdomen: Normal bowel sounds, Soft, Non tender, Non distended, No organomegaly - Back Back: No CVA TTP - Derm Derm: Normal color, Warm and dry, No rash - Psych Psych: Normal mood, Normal affect Results - Vitals Vitals: Vital Signs - 24 hr 12/04/23 12/04/23 17:22 19:32 Temperature 36.5 C 36.3 C L Heart Rate 73 76 Respiratory 15 16 Rate Blood Pressure 136/92 H 133/68 H O2 Saturation 99 99 Oxygen O2 Source Room air - Labs Labs: Laboratory Tests 12/04/23 17:20 Urine Color BROWN Urine Clarity CLOUDY Urine pH 5.5 Ur Specific Bowie >=1.030 H Urine Protein 100 H Urine Glucose (UA) NEGATIVE Urine Ketones TRACE Urine Occult Blood LARGE H Urine Nitrite NEGATIVE Urine Bilirubin NEGATIVE Urine Urobilinogen 0.2 (NORMAL) Ur Leukocyte Esterase NEGATIVE Urine RBC TNTC H Urine WBC 0-3 Ur Squamous Epith Cells NONE SEEN Urine Bacteria None Seen Ur Microscopic Review INDICATED Urine Culture Comments NOT INDICATED - Rads (name of study) CT KUB Relevant Findings:: Final report received, EMP independent interpretation of test, Other (Interval movement of previous inferior pole left renal calculus now and right renal pelvis. Minimal hydronephrosis on the left decreased compared to prior CT.) PD Medical Decision Making - ED course ED course: 48-year-old male presents emergency department for hematuria. Urinalysis was complete he has no leukocytes or nitrites making me less concerned and suspicious for possible urinary tract infection he also has no dysuria no flank pain or tenderness but patient says that he is worried that there could be some sort of possible obstructive stone given his past with multiple right UBS renal calculi. CT KUB was complete and it does show interval movement previous inferior pole left renal calculus now into the right renal pelvis minimal hydronephrosis in the left decreased compared to prior CT although renal pelvis is prominent. Patient was given a refill of his Flomax and he was also given a refill of his pain medications although he was informed that he needs to be very careful with these and that we cannot continue to refill these pain meds and he needs to follow-up with his urologist about refills of pain meds and we can no longer continue to do it from the emergency department. I am prescribing a short course of short-acting opioid pain medication for this patient. 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 I have discussed that the opioids are for short term therapy only, and will not be refilled from the ED.. He has an appointment with his urologist in about a week and was given return precautions all questions answered patient safe for discharge. Departure - Departure Disposition: Home, Self Care Clinical Impression: Renal calculi Instructions: Kidney Stone Urine, Uric Acid Urine Prescriptions: Tamsulosin [Flomax] 1 cap PO DAILY #14 cap oxyCODONE [Roxicodone] 5 mg PO Q4-6H PRN #15 tablet PRN Reason: Pain 5-7 Comments: Thank you for trusting us with your care we have completed a CT scan to look at your kidney stones and it appears that there is some movement of the previous inferior pole left kidney stone now into the renal pelvis. Overall your CT scan looks like it has improved in comparison to last CT scan. Make sure that you continues to strainer for kidney stones follow-up with your primary care provider as needed I have sent a refill of your Flomax to your preferred pharmacy as well as a small prescription of pain medication. I am prescribing a short course of narcotic pain medication for you. These are potentially dangerous and addictive medications that should be used carefully. These medications may constipate you. Take an qcvi-cau-prejuod stool softener (docusate) twice daily with plenty of water while taking these medications. If you go 24 hours without a bowel movement, take eunk-jvz-agsdeqy miralax, per package instructions. Do not drink or drive while taking these medications. If you received narcotic or sedating medications while in the emergency department, do not drive for 24 hours. Store this medication in a safe, secure place and out of reach of children. It is a violation of federal law to give or sell this medication to another person or to use in a manner other than prescribed. The ED will not refill narcotic prescriptions, including prescriptions lost or stolen. To dispose of unwanted medications: 1. [facility] at [address] in [place] has a medication drop box. They accept prescription medications (in pill form) Friday through Friday 9:00 a.m. to 5:00 p.m. 2. The [facility] accepts prescription medications (in pill form only) for disposal year round. Call for more information. 3. Contact the [facility] for the next [facility] sponsored prescription drug collection event. , [phone], or [phone]; Note that many narcotic pain relievers also contain Tylenol/acetaminophen. Please ensure that your total dose of acetaminophen from all sources does not exceed 3 g (3000 mg) per day. 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 Images were recorded and evaluated at appropriate window settings. Reformats: coronal and sagittal. For radiation dose reduction, the following was used: automated exposure control, adjustment of mA and/or kV according to patient size. COMPARISON: CT abdomen/pelvis 10/17/2023 FINDINGS: Image quality: Diagnostic. Lower chest: Unremarkable. Liver: No contour-deforming mass. Gallbladder: Unremarkable. Biliary tree: No intrahepatic or extrahepatic dilation, accounting for age. Spleen: No splenomegaly. Pancreas: No pancreatic ductal dilation. Adrenals: No adrenal nodule. Kidneys and ureters: Multiple nonobstructing right renal calculi are unchanged. Previous left renal calculus identified in the inferior pole measuring 7 mm Hounsfield units 1292 has now moved to the renal pelvis. There is prominence of the renal pelvis with minimal hydronephrosis, the latter decreased compared to prior exam. Stomach, bowel and peritoneum: No gastric or small bowel dilation. No abnormal wall thickening. No pathologic free fluid. Lymph nodes: No central or retroperitoneal adenopathy. Vessels: No infrarenal aortic aneurysm. Reproductive organs: Unremarkable. Bladder: Bladder wall thickness is normal, accounting for underdistention. No calcified bladder stones. Pelvic lymph nodes: No adenopathy by size criteria. Bones: No aggressive osseous abnormality. Other: No significant ventral or inguinal hernia. IMPRESSION: Interval movement of previous inferior pole left renal calculus now into the renal pelvis. There is minimal hydronephrosis on the left decreased compared to prior exam although renal pelvis is prominent. Reviewed by: Sherine Gunter MD on 12/04/2023 6:50 PM PDT Approved by: Sherine Gunter MD on 12/04/2023 6:50 PM PDT Station ID: [id number] Report Electronically Signed by Sherine Gunter MD 12/04/23 [id number] 12/04/23 0228 Forms: PCP List Discharge Date/Time: 12/04/23 19:32
--- NOTE | 2023-12-04 18:52 | CT Report ---
PROCEDURE: Abdomen/Pelvis WO INDICATIONS: r/o renal calculi TECHNIQUE: A CT scan of the abdomen and pelvis was performed without the use of intravenous contrast. Images we re recorded and evaluated at appropriate window settings. Reformats: coronal and sagittal. For radiat ion dose reduction, the following was used: automated exposure control, adjustment of mA and/or kV ac cording to patient size. COMPARISON: CT abdomen/pelvis 10/17/2023 FINDINGS: Image quality: Diagnostic. Lower chest: Unremarkable. Liver: No contour-deforming mass. Gallbladder: Unremarkable. Biliary tree: No intrahepatic or extrahepatic dilation, accounting for age. Spleen: No splenomegaly. Pancreas: No pancreatic ductal dilation. Adrenals: No adrenal nodule. Kidneys and ureters: Multiple nonobstructing right renal calculi are unchanged. Previous left renal c alculus identified in the inferior pole measuring 7 mm Hounsfield units 1292 has now moved to the bobbi al pelvis. There is prominence of the renal pelvis with minimal hydronephrosis, the latter decreased compared to prior exam. Stomach, bowel and peritoneum: No gastric or small bowel dilation. No abnormal wall thickening. No pa thologic free fluid. Lymph nodes: No central or retroperitoneal adenopathy. Vessels: No infrarenal aortic aneurysm. Reproductive organs: Unremarkable. Bladder: Bladder wall thickness is normal, accounting for underdistention. No calcified bladder stone s. Pelvic lymph nodes: No adenopathy by size criteria. Bones: No aggressive osseous abnormality. Other: No significant ventral or inguinal hernia. IMPRESSION: Interval movement of previous inferior pole left renal calculus now into the renal pelvis. There is m inimal hydronephrosis on the left decreased compared to prior exam although renal pelvis is prominent . Reviewed by: Sherine Gunter MD on 12/04/2023 6:50 PM PDT Approved by: Sherine Gunter MD on 12/04/2023 6:50 PM PDT Station ID: [id number]
[2023-12-04 20:18] VITALS: BP 133/68
== END 2023-12-04 19:32 | disposition home or self-care (01) ==
LOC: ED 17:15
DX: N13.2 Hydronephrosis with renal and ureteral calculous obstruction (principal)
CPT/HCPCS: 81001; 81003; 87086; 99284